=== PATIENT | male | born 1960 | race Native Hawaiian/Other Pacific Islander ===

== ENCOUNTER 2019-07-18 07:45 | Emergency (ER) | payer OTHER ==
[~2019-07-18] VITALS: Ht 185.4 cm; Wt 122.5 kg
[2019-07-18 08:39] LABS: PLATELET COUNT 239 K/uL (142-355)
[2019-07-18 10:38] VITALS: BP 104/61; TEMP 98.1
== END 2019-07-18 10:45 | disposition short-term general hospital (02) ==
LOC: ED 07:45
PROVIDERS: Emergency Medicine
DX: N49.3 Fournier gangrene (principal); E11.9 Type 2 diabetes mellitus without complications; A41.9 Sepsis, unspecified organism
CPT/HCPCS: 36415; 80053; 83036; 83605; 85007; 85027; 87040; 96360; 96361; 96365; 96374; 96375; 96376; 99284; J2270; J2405; J2543

== ENCOUNTER 2019-07-18 11:00 | Outpatient (CLI) | payer OTHER | END 2019-07-18 12:14 | disposition short-term general hospital (02) | LOC: AMB 11:00 | DX: L02.214 Cutaneous abscess of groin (principal); I96 Gangrene, not elsewhere classified | CPT/HCPCS: A0425; A0429 ==

== ENCOUNTER 2019-08-02 18:59 | Emergency (ER) | payer OTHER ==
[~2019-08-02] VITALS: Ht 185.4 cm; Wt 111.1 kg
[2019-08-02 19:52] VITALS: BP 154/90; TEMP 98.2
== END 2019-08-02 19:52 | disposition home or self-care (01) ==
LOC: ED 18:59
DX: N49.3 Fournier gangrene (principal); Z98.890 Other specified postprocedural states
CPT/HCPCS: 99281

== ENCOUNTER 2020-04-15 02:33 | Emergency (ER) | payer BC ==
[~2020-04-15] VITALS: Ht 185.4 cm; Wt 113.4 kg
[2020-04-15 03:19] LABS: PLATELET COUNT 258 K/uL (142-355)
[2020-04-15 03:21] LABS: POTASSIUM 4.3 mmol/L (3.6-5.2)
[2020-04-15 05:30] VITALS: BP 152/77; TEMP 98.7
== END 2020-04-15 05:30 | disposition home or self-care (01) ==
LOC: ED 02:33
PROVIDERS: Hospitalist
DX: N39.0 Urinary tract infection, site not specified (principal); N13.2 Hydronephrosis with renal and ureteral calculous obstruction; R10.32 Left lower quadrant pain; Z87.442 Personal history of urinary calculi
CPT/HCPCS: 36415; 80053; 81000; 82150; 83690; 85027; 87088; 96365; 96375; 99284; J1170; J1200; J1885; J1956; J2405

== ENCOUNTER 2020-09-14 16:01 | Outpatient (CLI) | payer BC, OTHER | END 2020-09-14 20:01 | disposition home or self-care (01) | LOC: INF 16:01 | PROVIDERS: ATTEND Internal Medicine | DX: Z23 Encounter for immunization (principal) | CPT/HCPCS: 96372 ==

== ENCOUNTER 2020-10-04 10:50 | Outpatient (CLI) | payer BC, OTHER | END 2020-10-04 21:13 | disposition home or self-care (01) | LOC: INF 10:50 | PROVIDERS: ATTEND Internal Medicine | DX: Z23 Encounter for immunization (principal) | CPT/HCPCS: 96372 ==

== ENCOUNTER 2020-10-14 13:20 | Outpatient (CLI) | payer BC | END 2020-10-14 19:53 | disposition home or self-care (01) | LOC: LAB 13:20 | PROVIDERS: ATTEND Internal Medicine | DX: N20.0 Calculus of kidney (principal) | CPT/HCPCS: 82360 ==

== ENCOUNTER 2021-05-26 13:30 | Outpatient (CLI) | payer BC, OTHER | END 2021-05-26 18:00 | disposition home or self-care (01) | LOC: INF 13:30 | PROVIDERS: ATTEND Internal Medicine | DX: Z23 Encounter for immunization (principal) | CPT/HCPCS: 0004A ==

== ENCOUNTER 2022-11-02 08:00 | Outpatient (CLI) | payer BC, OTHER | END 2022-11-02 19:10 | disposition home or self-care (01) | LOC: US 08:00 | PROVIDERS: ATTEND Internal Medicine | DX: Z12.2 Encounter for screening for malignant neoplasm of respiratory organs (principal); M25.551 Pain in right hip; Z13.6 Encounter for screening for cardiovascular disorders; F17.210 Nicotine dependence, cigarettes, uncomplicated ==